=== PATIENT | female | born 1955 | race Caucasian/White ===

== ENCOUNTER 2023-04-04 02:46 | Outpatient (CLI) | payer MEDICARE, OTHER, SELFPAY ==
--- NOTE | 2023-04-04 14:22 | ST.MBS_ITS ---
Date of Service Date of service: 04/04/23 Time of Service: 14:22 Modified Barium Swallow Study Findings: Video fluoroscopic Swallowing Evaluation (VFSE) / Modified Barium Swallow Study (MBSS) Speech Language Pathology Report Patient referred for VFSE/MBSS from KEYLA Myers given 2 month history of dysphagia, dysphonia, L vocal cord paralysis. HPI & Patient report of function: Patient is a 67 year old F with a history of uterine cancer, with new onset of dysphonia and dysphagia since January 2023. She saw Nolan Burns recently who diagnosed L vocal cord paralysis. She reports that she went to bed one night and the next morning she woke up unable to use her voice. She describes dysphagia to liquids, especially water, but usually can drink coffee and soda if she is careful. Some solids are ok (e.g., meat and potatoes), but vegetables such as corn, peas, and carrots will set off her cough. It feels like something touches a spot in her throat which she localizes appoximately at the level of proximal esophagus, and this sets her off on a coughing fit. She reports odynophagia, pain worsening with swallow. Denies taste changes. She feels as if she has more saliva than previously. She also reports history of gastroparesis and GERD, endorses reflux to the level of the throat. She has a very sensitive stomach and many foods she can not eat. She also endorses a frequent cough outside of meals which is often set off by things such as perfumes. She has an inhaler and endorses dx of COPD. She has documented history of AMISHA but was not prescribed a CPAP per her report. She denies sensation of pharyngeal stasis, primarily complains of sensitivity vs aspiration causing significant coughing episodes. No recent PNA reported. She also endorses some swelling and tenderness of L neck. She has lost 6 lbs since onset of her vocal cord paralysis. PMHx: Allergic rhinitis Hypertension COPD PTSD Hyperlipidemia AMISHA Sacroiliitis IMPRESSIONS: Swallow safety is largely intact; swallow efficiency is mildly impaired. Overall swallow function appears safe. Mild chronic pharyngoesophageal dysphagia characterized by likely laryngeal sensation changes and mild CP hypertrophy as well as mild esophageal residue resulting in globus sensation. Flash shallow laryngeal penetration during the swallow with both thick and thin liquids likely resulting from mild reduced/delayed laryngeal elevation as well as slow epiglottic inversion. No aspiration and penetration is largely resolved by swallow completion. Patient's cough responses are not consistently associated with penetration events, suspect laryngeal hypersensitivity is likely impacting perception of severity. Patient does appear with difficulty initiating A/P oral transit likely secondary to anxiety but may also be impacted by xerostomia. Patient appears to be at low risk for potential aspiration PNA and/or pulmonary compromise and low risk for malnutrition, low risk for dehydration. Diet modification is not indicated for safety but patietn may wish to avoid certain foods for comfort given severity of her sensory response. Non-oral nutrition is not indicated. Swallow prognosis is good given: Positive prognostic factors: Age, Severity, Motivation, Negative prognostic factors: and pending patient/caregiver training in risk management as outlined, including use of trialed compensatory strategies. Patient appears to be a good[fair][poor] candidate for behavioral swallow rehabilitation. Specialist referrals:? Consider GI if not already engaged. ? RECOMMENDATIONS: Diet Texture Recommendation:? IDDSI LEVEL SOLIDS 7-Regular or Easy to Chew Solids - add sauces/gravies to promote swallow iniation. LIQUIDS 0-Thin Liquids - small sips Please see further details at?www.iddsi.org http://www.iddsi.org/ MEDICATIONS As tolerated Diet texture modification is per patient's preference; please adjust diet textures at patient's discretion & collaboration with care team. Do not alter medications (e.g., cut)? without advice from your MD or pharmacist. Risk Management Strategies:? Behavioral reflux precautions, including upright position during + 90 mins after meals. Small bites, approx [id number] Small sips, approx 10 mL Alternate solids/liquids as able Control risk factors for aspiration pneumonia via (a) thorough oral hygiene & (b) maintaining physical mobility as tolerated PLAN: Therapy: Provided reflux counseling and recommendations, recommend patient to trial these strategies and f/u with ENT/GI. If symptoms do not improve with lifestyle changes, etc, she may benefit from further speech therapy in the future for laryngeal hypersensitivity/voice therapy and reflux counseling. Please place speech therapy referral if further services are desired. ----- OBJECTIVE Videofluoroscopic Swallow Evaluation (VFSE/MBSS) was conducted in the lateral projection by Speech-Language Pathologist, in collaboration with Radiologist, to evaluate oropharyngeal swallow function. Anatomic view under fluoroscopy: Appearance of osteophytes ~C6-7 PO Barium Contrast Trials Oral barium water-soluble contrast was administered as follows: IDDSI Level 0 Varibar thin liquid (40% w/v) IDDSI Level 2 Varibar nectar thick/mildly thick liquid (40% w/v) IDDSI Level 4 Varibar pudding/pureed/extremely thick (40% w/v) IDDSI Level 7 Regular Solid: 1/2 jack cracker coated in 3 mL Varibar pudding 13 mm barium tablet taken with Extremely Thick Liquids. MBSImP Component Scores: COMPONENT Scale SCORE 1 Lip closure (0-4) 0 Resulted in no labial escape 2 Hold Position (0-3) 1 Allowed bolus escape to lateral buccal cavity/floor of mouth 3 Bolus Preparation (0-4) 0 Resulted in timely and efficient chewing and mashi ng 4 Bolus Transport (0-4) 0 Was with brisk tongue motion 5 Oral Residue (0-4) 1I Was a trace, lining oral structures 6 Swallow Initiation (0-4) 2 Occurred as bolus head at posterior laryngeal surface of epiglottis 7 Soft Palate Elevation (0-4) 0 Resulted in no bolus between soft palate and t he pharyngeal wall 8 Laryngeal Elevation (0-3) 1 Was decreased with partial superior movement of thyroid cartilage/partial approximation of arytenoids to epiglottic petiole 9 Anterior Hyoid Motion (0-2) 0 Demonstrated complete anterior movement 10 Epiglottic Movement (0-2) 1 Resulted in partial inversion 11 Laryngeal Closure (0-2) 1 Was incomplete with narrow a column of air/contra st in laryngeal vestibule 12 Pharyngeal Stripping Wave (0-2) 0 Was present and complete 13 Pharyngeal Contraction (0-3) NA No A/P view trials completed 14 PES OpeningA (0-3) 0 Was completely distended and complete duration with no obstruction of flow 15 Tongue Base Retraction (0-4) 1 Allowed a trace column of contrast or air between tongue base and pharyngeal wall 16 Pharyngeal Residue (0-4) 1 Showed a trace within or on pharyngeal structure s 17 Esophageal Clearance (0-4) NA No A/P view trials completed Results: COMPONENT Scale SCORE 1 Oral Score (0-18) 3 2 Pharyngeal Score (0-29) 3 3 Esophageal Score (0-4) n/a Dysphagia Outcome and Severity Scale: COMPONENT Scale SCORE 1 LEVEL (1-7) 6 Full PO: Normal Diet - Within functional limits/modified independence Penetration-Aspiration Scale: COMPONENT Scale SCORE 1 Thin liquid (1-8) 2 Contrast entered the airway, remained above the vocal folds, and was ejected from the airway. 2 [place] thick (1-8) 3 Contrast entered the airway, remained above the vocal folds, and was not ejected from the airway. 3 Honey thick (1-8) NA 4 Pudding thick (1-8) 1 Contrast did not enter the airway 5 Cookie (1-8) 1 Contrast did not enter the airway Observations not captured in quantitative data: Puree and solid bolus appearing to transit slowly through the UES/distal esophagus but no extended or persistent stasis except trace amounts within PES likely secondary to osteophytes vs CP hypertropy. Patient indicates persistent globus sensation at PES even when complete clearance achieved. Flash penetration with both thin and thick liquids without contact to the vocal folds, though with frequent cough response across trials. Minimal to none residue in the larynx after swallow completion. Trialed Compensatory Strategies & Outcome: Maneuvers Successful (+) Unsuccessful (-) Postures Successful (+) Unsuccessful (-) 3 second Preparatory Set? ? +/- Chin Tuck Posture? ? Cough? ? Posterior Head tilt?? ? - ( spontaneous_ ? Reflexive? ? + (inconsistent w penetration events) ? Cued? Throat Clear? ? D Head Tilt to? Reflexive? Left? Cued? Right? ? Saliva swallow? ? Head Turn/Rotate to? ? Supraglottic Swallow? Left? ? - Super-supraglottic Swallow? Right? ? Bolus Modifications Successful (+) Unsuccessful (-) Delivery/Alternating Consistencies ? Follow with Liquid Wash ? Follow with Solid Bolus? Delivery/Via Straw? ? Reduced Volume? ? + Reduced Rate of Intake? ? Increased Viscosity? ? - (did not eliminate penetration) Other:?? ? Thank you for allowing us to take part in this patient's care. Please feel free to contact the [facility] Speech Language Pathology Department with any questions/concerns. Coding CPT Codes MOTION FLUOROSCOPY/SWALLOW - [id number] ([id number])
[2023-04-04] MEDS: Barium Sulfate 81% w/w for Oral Suspension 148 GM BTL 48 GM PO (15:02)
[2023-04-04] MEDS: Barium Sulfate 40% W/V 240 ML BTL 45 ML PO (15:03)
--- NOTE | 2023-04-04 15:05 | DI.RAD_ITS ---
Exam(s) RF MODIFIED SPEECH BA SWALLOW TECHNIQUE: Modified barium swallow was performed in conjunction with speech pathology. CONTRAST MATERIAL: Oral barium Oral water soluble contrast was administered. COMPARISON: No exams were available for comparison FINDINGS: Fluoroscopy was provided by the radiologist during modified barium swallow study performed by the spe ech therapist. Please see that separate report for details. There is no obvious aspiration evident during this study. IMPRESSION: No evidence of aspiration or penetration. RADIATION DOSE DELIVERED: marco Sidhu=6.43 mGy
[2023-04-04] MEDS: Barium Sulfate Oral Paste 40% W/V 230 ML TUBE 13 ML PO (15:08)
== END 2023-04-04 03:06 ==
LOC: DI 02:46
PROVIDERS: PCP Internal Medicine; Visit Provider Physician Assistant
DX: R49.0 Dysphonia (principal); R13.14 Dysphagia, pharyngoesophageal phase
CPT/HCPCS: 92611; 74221

== ENCOUNTER → 2023-08-20 12:43 | Outpatient (BNVA) | payer MEDICARE, OTHER, SELFPAY | PROVIDERS: PCP Internal Medicine; Referring Provider Internal Medicine; Visit Provider Surgery | DX: K21.9 Gastro-esophageal reflux disease without esophagitis (principal); R13.10 Dysphagia, unspecified; J38.01 Paralysis of vocal cords and larynx, unilateral; K31.84 Gastroparesis | CPT/HCPCS: 99203 ==

== ENCOUNTER 2023-08-22 10:04 | Day surgery (SDC) | payer MEDICARE, OTHER, SELFPAY ==
--- NOTE | 2023-08-22 07:06 | W.PM.PROGNOT ---
Date of Service Date of service: 08/22/23 Assessment and Plan Assessment and plan (1) Dysphagia: Status: Acute Assessment and plan: Ms Davey is a pleasant 68-year-old female who comes in complaining of dysphagia as well as epigastric discomfort.? She has a known history of reflux which was being controlled with omeprazole 40 mg daily.? She had to increase that to twice a day.? This has made a difference.? She denies any hematemesis, emesis or nausea.? Her past medical history is significant for gastroparesis as well as left vocal cord paralysis which is currently being worked up.? I do feel that there is 2 different things going on here one is her left vocal cord paralysis which will be worked up down at [facility] and then her worsening reflux symptoms.? We discussed the procedure in detail as well as as its possible complications.? Certainly with her history of gastroparesis and vocal cord paralysis she is at increased risk for aspiration.? I will have the patient go on a clear liquid diet 18 hours prior to her procedure.? I will ask her to only drink water after midnight the day before.? She tells me that she has done this before for other procedures.? She seems to understand the procedure itself as well as the possible risks.? Risks, benefits and complications have been reviewed. Complications include but are not limited to bleeding, pain, perforation, sore throat, aspiration, and adverse reaction to the medications.? Questions were entertained and answered to their satisfaction and they wished to proceed. No guarantees were given or implied. (2) Gastroparesis: Status: Acute
--- NOTE | 2023-08-22 07:07 | W.PM.OP ---
Date of service: 08/22/23 Time of Service: 11:44 Operative Note Operative Note DATE OF PROCEDURE: 08/22/23 PRE-OP DIAGNOSIS: Dysphagia POST-OP DIAGNOSIS: same PROCEDURE: EGD with biopsies SURGEON: Mary Mendiola ANESTHESIA TYPE: General:No Airway Refer to Anesthesia Record ESTIMATED BLOOD LOSS: 2 PATHOLOGY: none sent COMPLICATIONS: None Indications: Ms Davey is a pleasant 68-year-old female who was seen in the office for dysphagia. She also has dysphonia and is currently being worked up for a paralyzed left vocal cord. She also complains of some epigastric pain. She has a history of gastroparesis. We discussed the procedure in detail in the office and reviewed it again in same-day surgery. We also reviewed the complications both in the office and again in same-day surgery. The patient had time to ask questions. She understood the procedure and the possible complications and signed the consent. Findings: Unremarkable small bowel, mild inflammation of the stomach and normal esophagus. There were no ulcers and no signs of inflammation. No strictures in the esophagus. Procedure Description: After informed consent was obtained the patient was take to the procedure room and placed in a supine position. Monitors were applied and a time out was done. The patients name, date of , procedure type, allergies to medications and metal in their body was reviewed. A bite block was placed and the patient was sedated. Once sedated and comfortable the gastroscope was advanced through the oropharynx which was grossly normal into the esophagus. The proximal,mid- and distal esophagus were normal. The scope was advanced into the stomach and through the pylorus into the 3rd portion of the duodenum. The duodenum was noted to be normal. The scope was retracted back into the stomach. There was mild inflammation and biopsies were done to rule out H. pylori. There were no ulcers. The scope was retroflexed. The cardia and fundus were noted to be normal. There was no hiatal hernia noted. The scope was retracted back into the esophagus. The Z line was regular. The GE junction was at 36 cm. The scope was removed and the patient was woken up and taken back to [facility] in stable condition.
--- NOTE | 2023-08-22 07:11 | W.PM.DSUDISC ---
Date of service: 08/22/23 Time of Service: 12:14 Discharge Plan Disposition Patient Disposition: Home Condition: Stable Discharge Details Reason For Visit: Dysphagia Attending Provider: Mary Mendiola Primary Care Provider: Esperanza Rutherford Home Meds and New Rx's Prescriptions: New sucralfate [Carafate] 1 gram tablet 1 g PO QACHS Qty: 56 0RF Continued Armenian ginseng root extract 100 mg capsule 100 mg PO DAILY eszopiclone 1 mg tablet 1 mg PO QHS vitamin E (dl, acetate) 45 mg (100 unit) capsule 45 mg PO DAILY hydrochlorothiazide 25 mg tablet 25 mg PO DAILY fluticasone propionate [Flovent HFA] 44 mcg/actuation HFA aerosol inhaler 1 puff inhalation BID Rx Instructions: administer with spacer fluticasone propionate [Flonase Allergy Relief] 50 mcg/actuation spray,suspension 2 spray intranasal DAILY Rx Instructions: administer into each nostril albuterol sulfate 90 mcg/actuation HFA aerosol inhaler 2 puff inhalation Q6H PRN (Reason: shortness of breath or wheezing) omeprazole 40 mg capsule,delayed release(DR/EC) 40 mg PO DAILY lovastatin 40 mg tablet 40 mg PO DAILY montelukast 10 mg tablet 10 mg PO DAILY aspirin [Adult Aspirin Regimen] 81 mg tablet,delayed release (DR/EC) 81 mg PO DAILY bupropion HCl 75 mg tablet 75 mg PO BID Rx Instructions: administer 6 hours apart Discharge Instructions Additional Instructions: Findings: normal appearing stomach and esophagus Follow up: 2 weeks Please call if you develop: fevers >101.5 Nausea or Vomiting Abdominal pain that is not transient Rectal bleeding that is more then a tbsp A hard abdomen and inability to pass gas [facility] POST ENDOSCOPY INSTRUCTIONS Instructions for everyone who is given Anesthesia: For your safety, please do the following for the next 24 Hours: a. Do not drive or operate dangerous equipment b. Do not drink alcohol beverages or use any recreational drugs for the first 24 hours or while taking pain medications. The medications in your body may have a reaction that can be dangerous. c. Do not make any important decisions or sign any important papers 1. Generally there are no restrictions on your activity after a day or so has gone by, but you may feel a bit fatigued for a few days. 2. After you arrive home you may have a light meal and return to a normal diet as you can tolerate it without feeling sick to your stomach. 3. After surgery, you may feel pain or discomfort. This should be only transient, but if it persists please contact your doctor. 4. If there are any questions regarding the findings of your procedure, please feel free to contact your doctor. 6. If you are unable to contact your doctor with a problem, contact the hospital at [phone]. 7. Continue all your regular medications unless directed otherwise. I understand the above instructions and have no questions. Signature of Patient or Responsible Adult Escort Date/Time Name of Responsible Adult Escort Signature of Nurse Date/Time Stand Alone Forms: Anesthesia Discharge InstMac, Camilla Salas (DSU) Activity:: Activity as Tolerated Diet:: As Tolerated Discharge Orders Discharge Orders: Discharge Order (Routine); Ordered 08/22/23 Ordered By: Mary Mendioal DS: Diagnosis Discharge Diagnosis (1) Dysphagia: Status: Acute Asessment and Plan: Patient is seen and examined after their endoscopy. Patient has minimal sore throat. They have been able to tolerate liquids. They do not have any Nausea or Vomiting. They are not having any chest pain or shortness of breath. They have been able to pass gas and are not having any abdominal pain or distention. they have not vomited any blood. The vital signs have been stable-see nursing notes. We discussed findings on their endoscopy We reviewed the importance of lifestyle modifications- see diet recommendations We reviewed any new medications that the patient may be prescribed- see medicine reconciliation. Patient will either be sent a letter with the biopsy results or follow up in the office- see discharge instructions Patient was given explicit instructions for emergency follow up post endoscopy- see discharge instructions Patient verbalized understanding and was discharged in stable and satisfactory condition. See nursing notes. (2) Gastroparesis: Status: Acute
[2023-08-22 10:08] VITALS: BP 186/75; PULSE 67; RESP 18; TEMP 36.2; O2SAT 100
[2023-08-22] MEDS: Lactated Ringers 1,000 ML 80 ML IV (10:41)
--- NOTE | 2023-08-22 11:04 | ANES.PREOP_ITS ---
General Info Date of Service Date Performed: 08/22/23 Height: 5 ft Weight: 45.2 kg Body Mass Index (BMI): 19.4 Surgical Procedure: Operation Date: 08/22/23 10:35 Proposed Procedure Side Surgeon p Gastroscopy Mary Mendiola MD Meds Allergies and Home Medications Allergies Allergy/AdvReac Type Severity Reaction Status Date / Time morphine Allergy Intermediate Psychosis Verified 08/22/23 10:27 codeine Allergy Verified 08/22/23 10:27 propoxyphene Allergy Verified 08/22/23 10:27 Sulfa (Sulfonamide Allergy Verified 08/22/23 10:27 Antibiotics) acetaminophen AdvReac Verified 08/22/23 10:27 [From Darvocet-N] carbamazepine [From Tegretol] AdvReac hives Verified 08/22/23 10:27 clindamycin [From Cleocin] AdvReac Verified 08/22/23 10:27 nortriptyline AdvReac hives Verified 08/22/23 10:27 phenobarbital AdvReac Hives Verified 08/22/23 10:27 primidone [From Mysoline] AdvReac Verified 08/22/23 10:27 derived shellfish Allergy brain Uncoded 08/22/23 10:27 seizure dilatin Allergy Hives Uncoded 08/22/23 10:27 percocet AdvReac Uncoded 08/22/23 10:27 Home Medication Medication Instructions Recorded albuterol sulfate 90 mcg/actuation 2 puff inhalation Q6H PRN 02/13/23 aerosol inhaler shortness of breath or wheezing fluticasone propionate 50 2 spray intranasal DAILY 02/13/23 mcg/actuation nasal spray,suspension (Flonase Allergy Relief) omeprazole 40 mg capsule,delayed 40 mg PO DAILY 02/13/23 release lovastatin 40 mg tablet 40 mg PO DAILY 07/04/23 aspirin 81 mg tablet,delayed 81 mg PO DAILY 08/14/23 release (Adult Aspirin Regimen) montelukast 10 mg tablet 10 mg PO DAILY 08/14/23 German ginseng root extract 100 mg 100 mg PO DAILY 08/20/23 capsule bupropion HCl 75 mg tablet 75 mg PO BID 08/20/23 eszopiclone 1 mg tablet 1 mg PO QHS 08/20/23 fluticasone propionate 44 1 puff inhalation BID 10/09/23 mcg/actuation HFA aerosol inhaler (Flovent HFA) hydrochlorothiazide 25 mg tablet 25 mg PO DAILY 08/20/23 vitamin E (dl, acetate) 45 mg (100 45 mg PO DAILY 08/20/23 unit) capsule Current Visit Medications: Current Medications Generic Name Dose Route Start Last Admin Trade Name Freq PRN Reason Stop Dose Admin Ringer's Solution 1,000 mls @ 80 mls/hr 08/22/23 06:00 08/22/23 10:41 IV 09/20/23 23:59 80 mls/hr INFUSION LUIS MIGUEL Administration IV Miscellaneous Supplies 1 each 08/22/23 06:00 Iv Access IV 09/20/23 23:59 DIRECTED LUIS MIGUEL Ondansetron HCl 4 mg 08/22/23 07:12 Ondansetron 4 Mg/2 Ml Vial IVP 09/21/23 07:11 Q4H PRN PRN Nausea / Vomiting Sodium Chloride 0 ml 08/22/23 06:00 Normal Saline Flush 10 Ml Syr IV 09/20/23 23:59 PRN PRN Sodium Chloride 0 ml 08/22/23 06:00 Normal Saline 10 Ml Vial IJ 09/20/23 23:59 DIRECTED PRN Sterile Water 0 ml 08/22/23 06:00 Water,Injection,Sterile 10 Ml Vial IJ 09/20/23 23:59 DIRECTED PRN PFSH Active Problems Active Problems: Problem Status Onset Code Gastroparesis K31.84 Dysphagia R13.10 Mediastinal mass J98.59 Paralysis of left vocal cord J38.01 Medical History Medical History Allergic rhinitis, unspecified COPD (chronic obstructive pulmonary disease) Essential (primary) hypertension Hyperlipidemia, unspecified AMISHA (obstructive sleep apnea) Paralysis of vocal cords and larynx, unspecified PTSD (post-traumatic stress disorder) Sacroiliitis, not elsewhere classified Uterine cancer Surgical History Surgical History History of cholecystectomy 1981 History of colonoscopy 11/16/10 History of hysterectomy 11/12/81 History of tonsillectomy and adenoidectomy Status post JEMIMA-BSO Tobacco Smoking/Tobacco Use Status: Current-Occasional Tobacco Type: cigarettes Alcohol Alcohol Intake: current Alcohol intake frequency: holidays/special occasions only Substance Use Substance use: Never Substance use type: does not use Vital Signs and Lab Results Vital Signs Most Recent Vital Signs in EMR: Most Recent Vital Signs Temp Pulse Resp BP Pulse Ox 36.2 C L 67 18 186/75 H 100 08/22/23 10:08 08/22/23 10:08 08/22/23 10:08 08/22/23 10:08 08/22/23 10:08 Lab Results Blood Type / Crossmatch: No Data to Display Complete Blood Count: No Data to Display Complete Metabolic Panel: No Data to Display Liver Function Panel: No Data to Display Coagulation Panel: No Data to Display Cardiac Panel: No Data to Display Arterial Blood Gas: No Data to Display Venous Blood Gas: No Data to Display Pancreas Panel: No Data to Display Thyroid Panel: No Data to Display Infectious Disease: No Data to Display Blood Cultures: No Data to Display Toxicology Panel: No Data to Display Imaging and Studies Imaging and Studies Study information below may be from another EMR and interpreted by another provider. Please see original notes in EMR for more complete details. CT Summary: Neck CT: Extreme narrowing of supraglottic larynx, Paralysis of righ t vocal cord, High grade stenosis of Left internal carotid artery. (Per patient has had a workup and Internal Carotid is clear), Per patient left vocal cord is paralyzed. Please see scanned record. Anesthesia Assessment and Plan Anesthesia History Personal History: No History of Anesthesia Complications Family History: No Family History of Anesthesia Complications Exercise Tolerance Exercise Tolerance: Metabolic Equivalents>4 Pertinent Negatives Pertinent Negatives: No Major Cardiovascular Symptoms or Complaints, No Major Pulmonary Symptoms or Complaints and No History of CVA/TIA Cardiac & Pulmonary Exam Cardiac Exam: Normal S1/S2 Heart Sounds Pulmonary Exam: Clear Bilateral Breath Sounds Implantable Cardiac Device Does patient have a Pacemaker or an ICD?: No Airway Exam Known Difficult Airway: No Mallampati Class: 2 Mouth Opening: Normal (> 3cm) Thyromental Distance: Greater than 3 cm Neck Range of Motion: Full ROM Neck Circumference: Normal Teeth Condition: Generalized Poor Dentition and Removable Dentures/Plates Upper Tooth Numberin. Tooth present 2. Tooth present ASA Classification ASA Score: ASA 3 Emergency Case?: No NPO Status NPO Status: NPO Clears >2 hours, Solids >8 hours Anesthesia Plan Resuscitation Status: Full Code Anesthesia Technique: General Anesthesia Airway Planned: Natural Airway Monitors Used: Standard Monitors
[2023-08-22 11:16] VITALS: BMI 19.4
--- NOTE | 2023-08-22 11:42 | STOM_PTH ---
PATIENT: Odalis Davey LOC: SON U#:[id number] AGE/SX: 68/F ROOM: RE08/22/[address]: Mary Mendiola MD : 1955 BED: DIS: 08/22/2023 SPEC #: [id number] RECD: 08/22/23 13:00 STATUS: JOSEPH REQ #: [id number] CARMELO: 08/22/23 11:[address]: Mary Mendiola DEPT: Surgical Specimen RECD BY: Gavi Hollins ENTERED: 08/22/23 13:00 SP TYPE: STOMACH OTHR DR: Esperanza Rutherford Tissues: 1 - STOMACH BIOPSY Procedures: GROSS AND MICRO LEVEL 4 Comments: [id number]
[2023-08-22 11:49] VITALS: BP 132/79; PULSE 70; RESP 18; TEMP 36.6; O2SAT 93
[2023-08-22 12:13] VITALS: BP 151/97; PULSE 77; RESP 18; TEMP 36.6; O2SAT 98
--- NOTE | 2023-08-22 12:30 | W.ANESPOSTOP ---
Postoperative Evaluation Date, Time and Location Date Performed: 08/22/23 Time Performed: 12:21 Patient Location: Day Surgery Unit Vital Signs Most Recent Imported Vital Signs: Most Recent Vital Signs Temp Pulse Resp BP Pulse Ox 36.6 C 77 18 151/97 H 98 08/22/23 12:13 08/22/23 12:13 08/22/23 12:13 08/22/23 12:13 08/22/23 12:13 Pain Score Most Recent Pain Score: Most Recent Pain Score Pain Level 0 08/22/23 12:13 Assessment Mental Status: Awake (Alert & Oriented to Patient Baseline) Airway and Respiratory Function: Patent airway with normal (patient baseline) respiratory exam Cardiovascular Function: Hemodynamically Stable Hydration Status: Adequately Hydrated Nausea & Vomiting: No Nausea or Vomiting Pain: Pt. Denies Any Pain Peripheral Nerve Block: Patient did not receive a nerve block
== END 2023-08-22 12:35 | disposition home or self-care (01) ==
PROVIDERS: PCP Internal Medicine; Visit Provider Surgery
PROC: 0DJ68ZZ Inspection of Stomach, Via Natural or Artificial Opening Endoscopic (ICD-10-PCS; CPT 43235; principal; 2023-08-22 10:30)
DX: R13.10 Dysphagia, unspecified (principal); K29.70 Gastritis, unspecified, without bleeding; K31.84 Gastroparesis; I10 Essential (primary) hypertension; J38.01 Paralysis of vocal cords and larynx, unilateral; J44.9 Chronic obstructive pulmonary disease, unspecified; G47.33 Obstructive sleep apnea (adult) (pediatric)
CPT/HCPCS: 43239; 88305; J2405

== ENCOUNTER → 2023-09-04 10:13 | Outpatient (BNVA) | payer MEDICARE, OTHER, SELFPAY | PROVIDERS: PCP Internal Medicine; Referring Provider Internal Medicine; Visit Provider Surgery | DX: Z48.815 Encounter for surgical aftercare following surgery on the digestive system (principal) | CPT/HCPCS: 99213 ==

== ENCOUNTER 2024-01-21 03:24 | Outpatient (CLI) | payer MEDICARE, OTHER, SELFPAY ==
[2024-01-21 11:28] LABS: Abs Immature Grans 0.01 10^3/uL (0.0-0.06); Absolute Basophil Count 0.06 10^3/uL (0.0-0.2); Absolute Eosinophil Count 0.06 10^3/uL (0.0-0.7); Absolute Lymphocyte Count 2.31 10^3/uL (1.2-3.4); Absolute Monocyte Count 0.32 10^3/uL (0.1-0.8); Absolute Neutrophil Count 2.39 10^3/uL (1.2-6.7); Basophils % 1.2; Eosinophils % 1.2; HGB 12.5 g/dL (11.2-15.7); Immature Grans % 0.2; Lymphocytes % 44.9; MCH 34.2 pg (27.0-33.0); MCHC 34.7 % (32.0-36.0); MCV 98 fL (80-95); MPV 8.7 fL (8.0-11.0); Monocytes % 6.2; Neutrophils % 46.3; Platelet Count 234 10^3/uL (130-400); RBC 3.66 10^6/uL (3.93-5.22); RDW 12.2 % (11.7-14.6); RDW-SD 44.3 fL; WBC 5.15 10^3/uL (4.4-10.8)
[2024-01-21 11:47] LABS: ALT 20 U/L (14-59); AST 21 U/L (15-37); Albumin 3.7 g/dL (3.4-5.0); Alkaline Phosphatase 117 U/L (46-116); Anion Gap 9.1 mmol/L (3-11); BUN 16 mg/dL (7-18); Bilirubin, Total 0.5 mg/dL (0.2-1.0); CO2 28.9 mmol/L (21.0-32.0); CREATININE 0.9 mg/dL (0.55-1.02); Calcium 9.5 mg/dL (8.5-10.1); Chloride 102 mmol/L (98-107); Estimated GFR 70.51 (mL/min/1.73m2); Glucose 153 mg/dL (74-106); Magnesium 1.7 mg/dL (1.8-2.4); Potassium 3.6 mmol/L (3.5-5.1); Sodium 140 mmol/L (136-145); Total Protein 7.8 g/dL (6.4-8.2)
== END 2024-01-21 03:25 | disposition home or self-care (01) ==
LOC: LBO 03:24
PROVIDERS: PCP Internal Medicine; Visit Provider Internal Medicine Medical Oncology
DX: C77.1 Secondary and unspecified malignant neoplasm of intrathoracic lymph nodes (principal)
CPT/HCPCS: 36415; 80053; 83735; 85025

== ENCOUNTER 2024-01-28 05:24 | Outpatient (CLI) | payer MEDICARE, OTHER, SELFPAY ==
[2024-01-28 11:12] LABS: Abs Immature Grans 0.02 10^3/uL (0.0-0.06); Absolute Basophil Count 0.04 10^3/uL (0.0-0.2); Absolute Eosinophil Count 0.11 10^3/uL (0.0-0.7); Absolute Lymphocyte Count 2.03 10^3/uL (1.2-3.4); Absolute Monocyte Count 0.17 10^3/uL (0.1-0.8); Basophils % 0.9; Eosinophils % 2.5; HCT 38.4 % (36.0-46.0); HGB 13.2 g/dL (11.2-15.7); Immature Grans % 0.5; Lymphocytes % 46.5; MCH 34.3 pg (27.0-33.0); MCHC 34.4 % (32.0-36.0); MCV 100 fL (80-95); MPV 9.5 fL (8.0-11.0); Monocytes % 3.9; Neutrophils % 45.7; Platelet Count 256 10^3/uL (130-400); RBC 3.85 10^6/uL (3.93-5.22); RDW 11.9 % (11.7-14.6); RDW-SD 43.3 fL; WBC 4.37 10^3/uL (4.4-10.8)
[2024-01-28 11:28] LABS: ALT 42 U/L (14-59); AST 37 U/L (15-37); Alkaline Phosphatase 108 U/L (46-116); Anion Gap 7.2 mmol/L (3-11); BUN 22 mg/dL (7-18); Bilirubin, Total 0.6 mg/dL (0.2-1.0); CO2 28.8 mmol/L (21.0-32.0); CREATININE 0.9 mg/dL (0.55-1.02); Calcium 9.6 mg/dL (8.5-10.1); Chloride 102 mmol/L (98-107); Estimated GFR 70.51 (mL/min/1.73m2); Glucose 153 mg/dL (74-106); Magnesium 1.5 mg/dL (1.8-2.4); Potassium 3.6 mmol/L (3.5-5.1); Sodium 138 mmol/L (136-145); Total Protein 8.3 g/dL (6.4-8.2)
== END 2024-01-28 05:25 | disposition home or self-care (01) ==
LOC: LBO 05:25
PROVIDERS: PCP Internal Medicine; Visit Provider Internal Medicine Medical Oncology
DX: C77.1 Secondary and unspecified malignant neoplasm of intrathoracic lymph nodes (principal)
CPT/HCPCS: 36415; 80053; 83735; 85025

== ENCOUNTER 2024-02-04 05:12 | Outpatient (CLI) | payer MEDICARE, OTHER, SELFPAY ==
[2024-02-04 08:13] LABS: Abs Immature Grans 0.01 10^3/uL (0.0-0.06); Absolute Basophil Count 0.05 10^3/uL (0.0-0.2); Absolute Eosinophil Count 0.06 10^3/uL (0.0-0.7); Absolute Lymphocyte Count 1.22 10^3/uL (1.2-3.4); Absolute Monocyte Count 0.11 10^3/uL (0.1-0.8); Absolute Neutrophil Count 1.27 10^3/uL (1.2-6.7); Basophils % 1.8; Eosinophils % 2.2; HCT 37.6 % (36.0-46.0); Immature Grans % 0.4; Lymphocytes % 44.9; MCH 33.9 pg (27.0-33.0); MCHC 34.6 % (32.0-36.0); MCV 98 fL (80-95); MPV 9.3 fL (8.0-11.0); Neutrophils % 46.7; Platelet Count 241 10^3/uL (130-400); RBC 3.83 10^6/uL (3.93-5.22); RDW 11.7 % (11.7-14.6); RDW-SD 42.2 fL; WBC 2.72 10^3/uL (4.4-10.8)
[2024-02-04 08:42] LABS: ALT 43 U/L (14-59); AST 37 U/L (15-37); Alkaline Phosphatase 103 U/L (46-116); Anion Gap 6.9 mmol/L (3-11); BUN 19 mg/dL (7-18); Bilirubin, Total 0.6 mg/dL (0.2-1.0); CO2 30.1 mmol/L (21.0-32.0); CREATININE 0.7 mg/dL (0.55-1.02); Calcium 9.3 mg/dL (8.5-10.1); Chloride 99 mmol/L (98-107); Estimated GFR 95.32 (mL/min/1.73m2); Glucose 152 mg/dL (74-106); Magnesium 1.8 mg/dL (1.8-2.4); Sodium 136 mmol/L (136-145); Total Protein 8.3 g/dL (6.4-8.2)
== END 2024-02-04 05:13 | disposition home or self-care (01) ==
LOC: LBO 05:12
PROVIDERS: PCP Internal Medicine; Visit Provider Internal Medicine Medical Oncology
DX: C77.1 Secondary and unspecified malignant neoplasm of intrathoracic lymph nodes (principal)
CPT/HCPCS: 36415; 80053; 83735; 85025

== ENCOUNTER 2024-02-11 05:49 | Outpatient (CLI) | payer MEDICARE, OTHER, SELFPAY ==
[2024-02-11 09:07] LABS: Abs Immature Grans 0.01 10^3/uL (0.0-0.06); Absolute Basophil Count 0.03 10^3/uL (0.0-0.2); Absolute Eosinophil Count 0.06 10^3/uL (0.0-0.7); Absolute Lymphocyte Count 0.91 10^3/uL (1.2-3.4); Absolute Monocyte Count 0.22 10^3/uL (0.1-0.8); Absolute Neutrophil Count 1.08 10^3/uL (1.2-6.7); Basophils % 1.3; Eosinophils % 2.6; HCT 33.8 % (36.0-46.0); HGB 11.9 g/dL (11.2-15.7); Immature Grans % 0.4; Lymphocytes % 39.4; MCH 34.5 pg (27.0-33.0); MCHC 35.2 % (32.0-36.0); MCV 98 fL (80-95); Monocytes % 9.5; Neutrophils % 46.8; Platelet Count 242 10^3/uL (130-400); RBC 3.45 10^6/uL (3.93-5.22); RDW 11.8 % (11.7-14.6); RDW-SD 42.5 fL; WBC 2.31 10^3/uL (4.4-10.8)
[2024-02-11 09:22] LABS: ALT 37 U/L (14-59); AST 27 U/L (15-37); Albumin 3.7 g/dL (3.4-5.0); Alkaline Phosphatase 98 U/L (46-116); Anion Gap 8.4 mmol/L (3-11); BUN 15 mg/dL (7-18); Bilirubin, Total 0.6 mg/dL (0.2-1.0); CO2 29.6 mmol/L (21.0-32.0); CREATININE 0.7 mg/dL (0.55-1.02); Calcium 9.1 mg/dL (8.5-10.1); Chloride 102 mmol/L (98-107); Estimated GFR 95.32 (mL/min/1.73m2); Glucose 122 mg/dL (74-106); Magnesium 1.5 mg/dL (1.8-2.4); Potassium 4.1 mmol/L (3.5-5.1); Sodium 140 mmol/L (136-145); Total Protein 8.1 g/dL (6.4-8.2)
== END 2024-02-11 05:50 | disposition home or self-care (01) ==
LOC: LBO 05:50
PROVIDERS: PCP Internal Medicine; Visit Provider Internal Medicine Medical Oncology
DX: C77.1 Secondary and unspecified malignant neoplasm of intrathoracic lymph nodes (principal)
CPT/HCPCS: 36415; 80053; 83735; 85025

== ENCOUNTER 2024-02-18 03:56 | Outpatient (CLI) | payer MEDICARE, OTHER, SELFPAY ==
[2024-02-18 11:04] LABS: Abs Immature Grans 0.01 10^3/uL (0.0-0.06); Absolute Basophil Count 0.04 10^3/uL (0.0-0.2); Absolute Eosinophil Count 0.05 10^3/uL (0.0-0.7); Absolute Lymphocyte Count 0.83 10^3/uL (1.2-3.4); Absolute Monocyte Count 0.25 10^3/uL (0.1-0.8); Absolute Neutrophil Count 1.04 10^3/uL (1.2-6.7); Basophils % 1.8; Eosinophils % 2.3; HCT 30.2 % (36.0-46.0); HGB 10.7 g/dL (11.2-15.7); Immature Grans % 0.5; Lymphocytes % 37.4; MCH 34.7 pg (27.0-33.0); MCHC 35.4 % (32.0-36.0); MCV 98 fL (80-95); MPV 9.1 fL (8.0-11.0); Monocytes % 11.3; Neutrophils % 46.7; Platelet Count 177 10^3/uL (130-400); RBC 3.08 10^6/uL (3.93-5.22); RDW-SD 42.4 fL; WBC 2.22 10^3/uL (4.4-10.8)
[2024-02-18 11:20] LABS: ALT 36 U/L (14-59); AST 28 U/L (15-37); Albumin 3.6 g/dL (3.4-5.0); Alkaline Phosphatase 86 U/L (46-116); Anion Gap 9.2 mmol/L (3-11); BUN 17 mg/dL (7-18); Bilirubin, Total 0.6 mg/dL (0.2-1.0); CO2 27.8 mmol/L (21.0-32.0); CREATININE 0.7 mg/dL (0.55-1.02); Calcium 9.1 mg/dL (8.5-10.1); Chloride 104 mmol/L (98-107); Estimated GFR 95.32 (mL/min/1.73m2); Glucose 113 mg/dL (74-106); Magnesium 1.4 mg/dL (1.8-2.4); Potassium 3.9 mmol/L (3.5-5.1); Sodium 141 mmol/L (136-145); Total Protein 7.6 g/dL (6.4-8.2)
== END 2024-02-18 03:57 | disposition home or self-care (01) ==
LOC: LBO 03:57
PROVIDERS: PCP Internal Medicine; Visit Provider Internal Medicine Medical Oncology
DX: C77.1 Secondary and unspecified malignant neoplasm of intrathoracic lymph nodes (principal)
CPT/HCPCS: 36415; 80053; 83735; 85025

== ENCOUNTER 2024-02-25 05:50 | Outpatient (CLI) | payer MEDICARE, OTHER, SELFPAY ==
[2024-02-25 09:10] LABS: Absolute Basophil Count 0.04 10^3/uL (0.0-0.2); Absolute Eosinophil Count 0.09 10^3/uL (0.0-0.7); Absolute Lymphocyte Count 0.68 10^3/uL (1.2-3.4); Absolute Monocyte Count 0.33 10^3/uL (0.1-0.8); Absolute Neutrophil Count 1.37 10^3/uL (1.2-6.7); Basophils % 1.6; Eosinophils % 3.6; HCT 31.6 % (36.0-46.0); Lymphocytes % 27.1; MCH 34.2 pg (27.0-33.0); MCHC 34.8 % (32.0-36.0); MCV 98 fL (80-95); MPV 8.6 fL (8.0-11.0); Monocytes % 13.1; Neutrophils % 54.6; Platelet Count 182 10^3/uL (130-400); RBC 3.22 10^6/uL (3.93-5.22); WBC 2.51 10^3/uL (4.4-10.8)
[2024-02-25 09:24] LABS: ALT 31 U/L (14-59); AST 26 U/L (15-37); Albumin 3.6 g/dL (3.4-5.0); Alkaline Phosphatase 98 U/L (46-116); Anion Gap 6.7 mmol/L (3-11); BUN 12 mg/dL (7-18); Bilirubin, Total 0.6 mg/dL (0.2-1.0); CO2 28.3 mmol/L (21.0-32.0); CREATININE 0.7 mg/dL (0.55-1.02); Chloride 105 mmol/L (98-107); Estimated GFR 95.32 (mL/min/1.73m2); Glucose 120 mg/dL (74-106); Magnesium 1.9 mg/dL (1.8-2.4); Potassium 4.6 mmol/L (3.5-5.1); Sodium 140 mmol/L (136-145); Total Protein 7.7 g/dL (6.4-8.2)
== END 2024-02-25 05:51 | disposition home or self-care (01) ==
LOC: LBO 05:50
PROVIDERS: PCP Internal Medicine; Visit Provider Internal Medicine Medical Oncology
DX: C77.1 Secondary and unspecified malignant neoplasm of intrathoracic lymph nodes (principal)
CPT/HCPCS: 36415; 80053; 83735; 85025

== ENCOUNTER → 2024-03-14 04:24 | Outpatient (CLI) | payer MEDICARE, OTHER, SELFPAY ==
--- NOTE | 2024-03-14 | DI.CT_ITS ---
Exam(s) CT CHEST W EXAM: CT CHEST W CLINICAL HISTORY: LUNG NODULE R91.8 NEOPLASM LYMPH NODE C77.1 ASSESS TREATMENT RESPONSE. TECHNIQUE: Multi planar reconstructions were performed. CONTRAST MATERIAL: Omnipaque 350; 75 cc COMPARISON: CT CT CHEST W/CONTRAST from 04/20/2023 FINDINGS: CHEST: LUNGS: Scarring in both lung apices is again evident. Emphysematous changes are again noted. Howeve r, there are no confluent infiltrates nor pleural effusions. There are no ominous pulmonary nodules. No significant focal findings in the trachea and mainstem bronchi. No bronchiectasis evident. MEDIASTINUM: There is no hilar adenopathy evident. Left mediastinal density in the fat adjacent to t he aortic arch and left main pulmonary artery is again evident. On today's study it appears less wid e than on the prior study, presently measuring approximately 1.3 cm wide (previously measured 1.6 cm wide). There are no other mediastinal masses. No subcarinal adenopathy. No supraclavicular adenopa thy. No axillary adenopathy. Visualized thyroid gland appears unremarkable. CARDIAC: Heart size is normal. There is very slight thickening of the anterior pericardium. Althoug h this only measures 4 mm maximum, this does appear to represent change from the previous April 2023 C T scan and therefore is consistent with a small amount of increased pericardial fluid.Caliber of the thoracic aorta is within normal limits. VISUALIZED UPPER ABDOMEN:There are no significant adrenal masses. Spleen size normal. OSSEOUS: No significant osseous lesions.No fractures.. IMPRESSION: 1. There is an abnormal density in the left mediastinal fat adjacent to the lateral aspect of the aor tic arch and left main pulmonary artery which appears slightly smaller in width when compared to CT s can of April 2023. Cephalocaudal and AP measurements appear similar. Probably represents adenopathy. There is no other intrathoracic adenopathy. 2. No infiltrates nor pleural effusions and no ominous pulmonary nodules. 3. Very small anterior pericardial effusion. RADIATION DOSE DELIVERED: 310.81mGy.cm Total DLP DATA REPOSITORY: All CT scans at this facility are submitted to the National Radiology Data Registry (NRDR) Dose Index Registry (DIR) with the [employer] (ACR). RADIATION OPTIMIZATION: All CT scans at this facility use at least one of these dose optimization te chniques: automated exposure control; mA and/or kV adjustment per patient size (includes targeted exa ms where dose is matched to clinical indication); or iterative reconstruction.
[2024-03-14] MEDS: Omnipaque 350 MG/ML 100 ML BTL IJ (10:25)
== END ==
PROVIDERS: PCP Internal Medicine; Visit Provider Nurse Practitioner Family
DX: C77.1 Secondary and unspecified malignant neoplasm of intrathoracic lymph nodes (principal); R91.8 Other nonspecific abnormal finding of lung field
CPT/HCPCS: 71260; J3490

== ENCOUNTER 2024-03-24 13:55 | Outpatient (CLI) | payer MEDICARE, OTHER, SELFPAY ==
[2024-03-24 11:51] LABS: Abs Immature Grans 0.01 10^3/uL (0.0-0.06); Absolute Eosinophil Count 0.07 10^3/uL (0.0-0.7); HGB 9.6 g/dL (11.2-15.7); MCH 35.7 pg (27.0-33.0); MCHC 34.3 % (32.0-36.0); MCV 104 fL (80-95); MPV 8.9 fL (8.0-11.0); Platelet Count 167 10^3/uL (130-400); RBC 2.69 10^6/uL (3.93-5.22); RDW 15.6 % (11.7-14.6); RDW-SD 58.5 fL; WBC 2.19 10^3/uL (4.4-10.8)
[2024-03-24 12:08] LABS: ALT 21 U/L (14-59); AST 23 U/L (15-37); Albumin 3.6 g/dL (3.4-5.0); Alkaline Phosphatase 103 U/L (46-116); Anion Gap 8.1 mmol/L (3-11); BUN 11 mg/dL (7-18); Bilirubin, Total 0.5 mg/dL (0.2-1.0); CO2 27.9 mmol/L (21.0-32.0); CREATININE 0.7 mg/dL (0.55-1.02); Calcium 8.8 mg/dL (8.5-10.1); Chloride 103 mmol/L (98-107); Estimated GFR 95.32 (mL/min/1.73m2); Glucose 155 mg/dL (74-106); Magnesium 1.7 mg/dL (1.8-2.4); Potassium 3.7 mmol/L (3.5-5.1); Sodium 139 mmol/L (136-145); Total Protein 7.4 g/dL (6.4-8.2)
[2024-03-24 12:25] LABS: Absolute Basophil Count 0.09 10^3/uL (0.0-0.2); Absolute Monocyte Count 0.22 10^3/uL (0.1-0.8); Absolute Neutrophil Count 0.92 10^3/uL (1.2-6.7); Atypical Lymphocytes % 3 %; Diff Comment Manual Differential; RBC Morphology Normal
[2024-03-24 12:58] LABS: FREE T4 0.72 ng/dL (0.76-1.46); TSH 2.44 uIU/Ml (0.36-3.74)
== END 2024-03-24 13:56 | disposition home or self-care (01) ==
LOC: LBO 13:56
PROVIDERS: Nurse Practitioner Family; PCP Internal Medicine; Visit Provider Internal Medicine Medical Oncology
DX: C77.1 Secondary and unspecified malignant neoplasm of intrathoracic lymph nodes (principal); Z79.899 Other long term (current) drug therapy
CPT/HCPCS: 36415; 80053; 83735; 84439; 84443; 85025

== ENCOUNTER 2024-04-21 05:57 | Outpatient (CLI) | payer MEDICARE, OTHER, SELFPAY ==
[2024-04-21 10:10] LABS: Abs Immature Grans 0.02 10^3/uL (0.0-0.06); Absolute Basophil Count 0.04 10^3/uL (0.0-0.2); Absolute Eosinophil Count 0.16 10^3/uL (0.0-0.7); Absolute Lymphocyte Count 0.72 10^3/uL (1.2-3.4); Absolute Monocyte Count 0.39 10^3/uL (0.1-0.8); Absolute Neutrophil Count 2.52 10^3/uL (1.2-6.7); Eosinophils % 4.2 %; HCT 29.9 % (36.0-46.0); HGB 10.3 g/dL (11.2-15.7); Immature Grans % 0.5 %; Lymphocytes % 18.7 %; MCH 35.8 pg (27.0-33.0); MCHC 34.4 % (32.0-36.0); MCV 104 fL (80-95); MPV 8.6 fL (8.0-11.0); Monocytes % 10.1 %; Neutrophils % 65.5 %; Platelet Count 200 10^3/uL (130-400); RBC 2.88 10^6/uL (3.93-5.22); RDW 12.2 % (11.7-14.6); RDW-SD 46.4 fL; WBC 3.85 10^3/uL (4.4-10.8)
[2024-04-21 10:29] LABS: ALT 21 U/L (14-59); AST 25 U/L (15-37); Albumin 3.5 g/dL (3.4-5.0); Alkaline Phosphatase 139 U/L (46-116); Anion Gap 10.8 mmol/L (3-11); BUN 10 mg/dL (7-18); Bilirubin, Total 0.6 mg/dL (0.2-1.0); CO2 29.2 mmol/L (21.0-32.0); CREATININE 0.7 mg/dL (0.55-1.02); Chloride 101 mmol/L (98-107); Estimated GFR 95.32 (mL/min/1.73m2); Glucose 119 mg/dL (74-106); Magnesium 1.5 mg/dL (1.8-2.4); Potassium 3.6 mmol/L (3.5-5.1); Sodium 141 mmol/L (136-145); Total Protein 8.1 g/dL (6.4-8.2)
[2024-04-21 12:27] LABS: FREE T4 0.92 ng/dL (0.76-1.46)
== END 2024-04-21 05:58 | disposition home or self-care (01) ==
LOC: LBO 05:57
PROVIDERS: Nurse Practitioner Family; PCP Internal Medicine; Visit Provider Internal Medicine Medical Oncology
DX: C77.1 Secondary and unspecified malignant neoplasm of intrathoracic lymph nodes (principal); Z79.899 Other long term (current) drug therapy
CPT/HCPCS: 36415; 80053; 83735; 84439; 84443; 85025

== ENCOUNTER 2024-05-19 03:22 | Outpatient (CLI) | payer MEDICARE, OTHER, SELFPAY ==
[2024-05-19 10:29] LABS: Abs Immature Grans 0.02 10^3/uL (0.0-0.06); Absolute Basophil Count 0.04 10^3/uL (0.0-0.2); Absolute Eosinophil Count 0.05 10^3/uL (0.0-0.7); Absolute Lymphocyte Count 0.88 10^3/uL (1.2-3.4); Basophils % 1.2 %; Eosinophils % 1.5 %; HCT 34.8 % (36.0-46.0); HGB 11.9 g/dL (11.2-15.7); Immature Grans % 0.6 %; Lymphocytes % 26.7 %; MCH 34.7 pg (27.0-33.0); MCHC 34.2 % (32.0-36.0); MCV 102 fL (80-95); MPV 8.8 fL (8.0-11.0); Monocytes % 9.1 %; Neutrophils % 60.9 %; Platelet Count 165 10^3/uL (130-400); RBC 3.43 10^6/uL (3.93-5.22); RDW 12.1 % (11.7-14.6); RDW-SD 45.8 fL; WBC 3.29 10^3/uL (4.4-10.8)
[2024-05-19 10:46] LABS: ALT 28 U/L (14-59); AST 31 U/L (15-37); Albumin 3.7 g/dL (3.4-5.0); Alkaline Phosphatase 116 U/L (46-116); Anion Gap 5.9 mmol/L (3-11); BUN 13 mg/dL (7-18); Bilirubin, Total 0.55 mg/dL (0.2-1.0); CO2 32.1 mmol/L (21.0-32.0); CREATININE 0.7 mg/dL (0.55-1.02); Calcium 8.9 mg/dL (8.5-10.1); Chloride 106 mmol/L (98-107); Estimated GFR 94.73 (mL/min/1.73m2); Glucose 103 mg/dL (74-106); Magnesium 1.6 mg/dL (1.8-2.4); Potassium 3.5 mmol/L (3.5-5.1); Sodium 144 mmol/L (136-145)
== END 2024-05-19 03:23 | disposition home or self-care (01) ==
LOC: LBO 03:22
PROVIDERS: PCP Internal Medicine; Visit Provider Internal Medicine Medical Oncology
DX: C77.1 Secondary and unspecified malignant neoplasm of intrathoracic lymph nodes (principal)
CPT/HCPCS: 36415; 80053; 83735; 85025

== ENCOUNTER 2024-06-16 03:11 | Outpatient (CLI) | payer MEDICARE, OTHER, SELFPAY ==
[2024-06-16 09:43] LABS: Abs Immature Grans 0.01 10^3/uL (0.0-0.06); Absolute Basophil Count 0.04 10^3/uL (0.0-0.2); Absolute Eosinophil Count 0.05 10^3/uL (0.0-0.7); Absolute Lymphocyte Count 1.09 10^3/uL (1.2-3.4); Absolute Monocyte Count 0.28 10^3/uL (0.1-0.8); Absolute Neutrophil Count 1.48 10^3/uL (1.2-6.7); Basophils % 1.4 %; Eosinophils % 1.7 %; HCT 34.1 % (36.0-46.0); HGB 11.7 g/dL (11.2-15.7); Immature Grans % 0.3 %; Lymphocytes % 36.9 %; MCH 34.2 pg (27.0-33.0); MCHC 34.3 % (32.0-36.0); MCV 100 fL (80-95); MPV 8.7 fL (8.0-11.0); Monocytes % 9.5 %; Neutrophils % 50.2 %; Platelet Count 181 10^3/uL (130-400); RBC 3.42 10^6/uL (3.93-5.22); RDW 12.3 % (11.7-14.6); RDW-SD 44.9 fL; WBC 2.95 10^3/uL (4.4-10.8)
[2024-06-16 10:10] LABS: ALT 25 U/L (14-59); Albumin 3.5 g/dL (3.4-5.0); Alkaline Phosphatase 118 U/L (46-116); Anion Gap 5.7 mmol/L (3-11); BUN 13 mg/dL (7-18); Bilirubin, Total 0.24 mg/dL (0.2-1.0); CO2 30.3 mmol/L (21.0-32.0); CREATININE 0.7 mg/dL (0.55-1.02); Calcium 9.1 mg/dL (8.5-10.1); Chloride 104 mmol/L (98-107); Estimated GFR 94.73 (mL/min/1.73m2); Glucose 119 mg/dL (74-106); Magnesium 1.6 mg/dL (1.8-2.4); Potassium 4.1 mmol/L (3.5-5.1); Sodium 140 mmol/L (136-145); Total Protein 7.9 g/dL (6.4-8.2)
[2024-06-16 10:33] LABS: AST 21 U/L (15-37)
[2024-06-16 10:46] LABS: TSH 4.61 uIU/Ml (0.36-3.74)
== END 2024-06-16 03:12 | disposition home or self-care (01) ==
LOC: LBO 03:11
PROVIDERS: Nurse Practitioner Family; PCP Internal Medicine; Visit Provider Internal Medicine Medical Oncology
DX: C77.1 Secondary and unspecified malignant neoplasm of intrathoracic lymph nodes (principal); Z79.899 Other long term (current) drug therapy
CPT/HCPCS: 36415; 80053; 83735; 84439; 84443; 85025

== ENCOUNTER 2024-07-21 01:47 | Outpatient (CLI) | payer MEDICARE, OTHER, SELFPAY ==
[2024-07-21 10:27] LABS: Abs Immature Grans 0.04 10^3/uL (0.0-0.06); Absolute Basophil Count 0.06 10^3/uL (0.0-0.2); Absolute Eosinophil Count 0.04 10^3/uL (0.0-0.7); Absolute Lymphocyte Count 2.41 10^3/uL (1.2-3.4); Absolute Monocyte Count 0.45 10^3/uL (0.1-0.8); Absolute Neutrophil Count 3.31 10^3/uL (1.2-6.7); Eosinophils % 0.6 %; HCT 37.1 % (36.0-46.0); HGB 12.7 g/dL (11.2-15.7); Immature Grans % 0.6 %; Lymphocytes % 38.2 %; MCHC 34.2 % (32.0-36.0); MCV 99 fL (80-95); MPV 8.3 fL (8.0-11.0); Monocytes % 7.1 %; Neutrophils % 52.5 %; Platelet Count 209 10^3/uL (130-400); RBC 3.74 10^6/uL (3.93-5.22); RDW 12.5 % (11.7-14.6); RDW-SD 45.1 fL; WBC 6.31 10^3/uL (4.4-10.8)
[2024-07-21 10:53] LABS: ALT 33 U/L (14-59); AST 27 U/L (15-37); Albumin 3.7 g/dL (3.4-5.0); Alkaline Phosphatase 67 U/L (46-116); Anion Gap 4.9 mmol/L (3-11); BUN 20 mg/dL (7-18); Bilirubin, Total 0.79 mg/dL (0.2-1.0); CO2 31.1 mmol/L (21.0-32.0); CREATININE 0.9 mg/dL (0.55-1.02); Calcium 9.2 mg/dL (8.5-10.1); Chloride 97 mmol/L (98-107); Estimated GFR 70.07 (mL/min/1.73m2); FREE T4 0.89 ng/dL (0.76-1.46); Glucose 122 mg/dL (74-106); Magnesium 1.6 mg/dL (1.8-2.4); Potassium 3.4 mmol/L (3.5-5.1); Sodium 133 mmol/L (136-145); TSH 2.76 uIU/Ml (0.36-3.74); Total Protein 7.5 g/dL (6.4-8.2)
== END 2024-07-21 01:48 | disposition home or self-care (01) ==
PROVIDERS: PCP Internal Medicine; Visit Provider Nurse Practitioner Family
DX: Z79.899 Other long term (current) drug therapy (principal)
CPT/HCPCS: 36415; 80053; 83735; 84439; 84443; 85025

== ENCOUNTER 2024-12-01 15:11 | Outpatient (CLI) | payer MEDICARE, OTHER, SELFPAY ==
[2024-12-01 13:24] LABS: Abs Immature Grans 0.02 10^3/uL (0.0-0.06); Absolute Basophil Count 0.04 10^3/uL (0.0-0.2); Absolute Eosinophil Count 0.04 10^3/uL (0.0-0.7); Absolute Lymphocyte Count 1.47 10^3/uL (1.2-3.4); Absolute Monocyte Count 0.43 10^3/uL (0.1-0.8); Absolute Neutrophil Count 2.24 10^3/uL (1.2-6.7); Basophils % 0.9 %; Eosinophils % 0.9 %; HGB 12.5 g/dL (11.2-15.7); Immature Grans % 0.5 %; Lymphocytes % 34.7 %; MCH 33.1 pg (27.0-33.0); MCHC 34.7 % (32.0-36.0); MCV 95 fL (80-95); Monocytes % 10.1 %; Neutrophils % 52.9 %; Platelet Count 235 10^3/uL (130-400); RBC 3.78 10^6/uL (3.93-5.22); RDW 11.9 % (11.7-14.6); RDW-SD 40.4 fL; WBC 4.24 10^3/uL (4.4-10.8)
[2024-12-01 13:43] LABS: ALT 11 U/L (14-59); AST 18 U/L (15-37); Albumin 4.3 g/dL (3.4-5.0); Alkaline Phosphatase 88 U/L (46-116); Anion Gap 8.2 mmol/L (3-11); BUN 17 mg/dL (7-18); Bilirubin, Total 0.78 mg/dL (0.2-1.0); CO2 29.8 mmol/L (21.0-32.0); CREATININE 0.9 mg/dL (0.55-1.02); Calcium 9.9 mg/dL (8.5-10.1); Chloride 100 mmol/L (98-107); Estimated GFR 70.07 (mL/min/1.73m2); Glucose 118 mg/dL (74-106); Magnesium 1.8 mg/dL (1.8-2.4); Potassium 3.7 mmol/L (3.5-5.1); Sodium 138 mmol/L (136-145); Total Protein 8.3 g/dL (6.4-8.2)
[2024-12-01 14:10] LABS: Calculated LDL 102 mg/dL (<100); Cholesterol 217 mg/dL (<200); Folate 14.9 ng/mL (8.6-20.0); HDL Cholesterol 85 mg/dL (40-60); Triglyceride 154 mg/dL (<150); Vitamin B12 347 pg/mL (193-986); Vitamin D 25 Total 11.5 ng/mL (30-100)
[2024-12-01 14:47] LABS: Iron 129 ug/dL (50-170); Total Iron Binding Capacity 363 ug/dL (250-450); Transferrin Sat 36 % (15-50)
== END 2024-12-01 15:12 | disposition home or self-care (01) ==
LOC: LBO 15:18
PROVIDERS: Family Medicine; PCP Internal Medicine; Visit Provider Nurse Practitioner Family
DX: C77.1 Secondary and unspecified malignant neoplasm of intrathoracic lymph nodes (principal); I10 Essential (primary) hypertension
CPT/HCPCS: 36415; 80053; 80061; 82306; 82607; 82746; 83540; 83550; 83735; 85025

== ENCOUNTER 2025-03-02 11:20 | Outpatient (CLI) | payer MEDICARE, OTHER, SELFPAY ==
[2025-03-02 11:47] LABS: ALT 19 U/L (14-59); AST 22 U/L (15-37); Albumin 3.8 g/dL (3.4-5.0); Alkaline Phosphatase 100 U/L (46-116); Anion Gap 7.4 mmol/L (3-11); BUN 10 mg/dL (7-18); Bilirubin, Total 0.7 mg/dL (0.2-1.0); CO2 29.6 mmol/L (21.0-32.0); CREATININE 0.9 mg/dL (0.55-1.02); Calcium 9.3 mg/dL (8.5-10.1); Chloride 103 mmol/L (98-107); Estimated GFR 70.07 (mL/min/1.73m2); Glucose 119 mg/dL (74-106); Magnesium 1.6 mg/dL (1.8-2.4); Potassium 3.6 mmol/L (3.5-5.1); Sodium 140 mmol/L (136-145); Total Protein 7.8 g/dL (6.4-8.2)
== END 2025-03-02 11:21 | disposition home or self-care (01) ==
LOC: LBO 11:21
PROVIDERS: PCP Internal Medicine; Visit Provider Internal Medicine
DX: E83.42 Hypomagnesemia (principal); C18.9 Malignant neoplasm of colon, unspecified
CPT/HCPCS: 36415; 80053; 83735

== ENCOUNTER 2025-03-30 10:09 | Outpatient (CLI) | payer MEDICARE, OTHER, SELFPAY ==
[2025-03-30 10:22] LABS: Abs Immature Grans 0.02 10^3/uL (0.0-0.06); Absolute Basophil Count 0.05 10^3/uL (0.0-0.2); Absolute Eosinophil Count 0.15 10^3/uL (0.0-0.7); Absolute Lymphocyte Count 1.33 10^3/uL (1.2-3.4); Absolute Monocyte Count 0.36 10^3/uL (0.1-0.8); Absolute Neutrophil Count 2.79 10^3/uL (1.2-6.7); Basophils % 1.1 %; Eosinophils % 3.2 %; HCT 38.4 % (36.0-46.0); HGB 13.5 g/dL (11.2-15.7); Immature Grans % 0.4 %; Lymphocytes % 28.3 %; MCH 34.4 pg (27.0-33.0); MCHC 35.2 % (32.0-36.0); MCV 98 fL (80-95); MPV 8.7 fL (8.0-11.0); Monocytes % 7.7 %; Neutrophils % 59.3 %; Platelet Count 230 10^3/uL (130-400); RBC 3.93 10^6/uL (3.93-5.22); RDW 11.9 % (11.7-14.6)
[2025-03-30 10:42] LABS: ALT 15 U/L (14-59); AST 21 U/L (15-37); Albumin 3.8 g/dL (3.4-5.0); Alkaline Phosphatase 97 U/L (46-116); Anion Gap 7.2 mmol/L (3-11); BUN 14 mg/dL (7-18); Bilirubin, Total 0.6 mg/dL (0.2-1.0); CO2 29.8 mmol/L (21.0-32.0); CREATININE 0.8 mg/dL (0.55-1.02); Calcium 9.2 mg/dL (8.5-10.1); Chloride 100 mmol/L (98-107); Estimated GFR 80.71 (mL/min/1.73m2); Glucose 131 mg/dL (74-106); Magnesium 1.7 mg/dL (1.8-2.4); Potassium 3.9 mmol/L (3.5-5.1); Sodium 137 mmol/L (136-145)
== END 2025-03-30 10:10 | disposition home or self-care (01) ==
LOC: LBO 10:10
PROVIDERS: PCP Internal Medicine; Visit Provider Internal Medicine Medical Oncology
DX: C77.1 Secondary and unspecified malignant neoplasm of intrathoracic lymph nodes (principal)
CPT/HCPCS: 36415; 80053; 83735; 85025

== ENCOUNTER → 2025-10-20 12:46 | Outpatient (BNVA) | payer MEDICARE, OTHER, SELFPAY | PROVIDERS: PCP Internal Medicine; Referring Provider Internal Medicine; Visit Provider Physical Therapy Assistant | DX: I73.89 Other specified peripheral vascular diseases (principal) | CPT/HCPCS: 93922 ==